=== PATIENT | female | born 1955 | race Caucasian/White ===

== ENCOUNTER → 2016-09-21 | Outpatient (CLI) | payer OTHER ==
[~2016-09-21] MED LIST: CALC500C70 PO; CEPH500C2 PO; CLR10 PO; OXYC-57 PO; PRAV20TA PO; SULI150T PO
--- NOTE | 2016-09-21 09:46 | DIAGNOSTIC IMAGING REPORT ---
TWO VIEW CHEST CLINICAL HISTORY: Cough. Chest tightness. FINDINGS: PA and lateral chest radiographs are obtained. No prior studies are available for comparison at the time of dictation. The cardiomediastinal silhouette is unremarkable. The lungs and pleural spaces are clear. There is no pneumothorax. The skeletal structures are osteopenic. The bony thorax appears intact. IMPRESSION: No active disease in the chest. Electronically signed by: Antoine Tovar M.D. 09/21/2016 9:44 AM Dictated Date/Time: 09/21/2016 9:43 AM
== END | disposition home or self-care (01) ==
LOC: C.RADBC 09:30
PROVIDERS: ATTEND Physician Assistant
DX: R07.89 Other chest pain (principal)

== ENCOUNTER → 2017-01-11 | Outpatient (CLI) | payer OTHER ==
[2017-01-11 12:58] LABS: ALT/SGPT 47 U/L (12-78); BLOOD UREA NITROGEN 21 mg/dl (7-18); BUN/CREATININE RATIO 22.4 (10-20); CALCIUM 9.5 mg/dl (8.5-10.1); CARBON DIOXIDE 28 mmol/L (21-32); CHLORIDE 106 mmol/L (98-107); CHOLESTEROL 152 mg/dl (0-200); CREATININE 0.92 mg/dl (0.60-1.20); GLUCOSE 96 mg/dl (70-99); POTASSIUM 3.9 mmol/L (3.5-5.1); SODIUM 140 mmol/L (136-145)
[2017-01-11 13:02] LABS: ALB/GLOB RATIO 1.4 (0.9-2); ALKALINE PHOSPHATASE 53 U/L (45-117); AST/SGOT 29 U/L (15-37); CHOLESTEROL/HDL RATIO 3.3; HDL CHOLESTEROL 46 mg/dl; LDL CHOLESTEROL CALCULATED 80 mg/dl; TRIGLYCERIDES 128 mg/dl (0-150); VERY LOW DENSITY LIPOPROT CALC 26 mg/dl
[2017-01-11 13:04] LABS: HEMATOCRIT 40.4 % (37-47); MEAN CORPUSCULAR HEMOGLOBIN 31.9 pg (25-34); MEAN CORPUSCULAR HGB CONC 34.7 g/dl (32-36); MEAN PLATELET VOLUME 11.7 fL (7.4-10.4); PLATELET COUNT 169 K/uL (130-400); RED BLOOD COUNT 4.39 M/uL (4.2-5.4); WHITE BLOOD COUNT 3.06 K/uL (4.8-10.8)
== END | disposition home or self-care (01) ==
LOC: C.LABPBG 09:38
PROVIDERS: ATTEND Physician Assistant
DX: Z00.00 Encounter for general adult medical examination without abnormal findings (principal); Z01.818 Encounter for other preprocedural examination; E78.5 Hyperlipidemia, unspecified

== ENCOUNTER → 2017-01-17 | Outpatient (CLI) | payer OTHER ==
[2017-01-17 12:23] LABS: COMPLETE YES; HEMATOCRIT 40.5 % (37-47); IG% 0.3 %; LYMPH % 32.7 %; LYMPH ABS # 0.96 K/uL (1.2-3.4); MEAN CELL VOLUME 91.4 fL (80-100); MEAN CORPUSCULAR HEMOGLOBIN 31.8 pg (25-34); MEAN CORPUSCULAR HGB CONC 34.8 g/dl (32-36); MEAN PLATELET VOLUME 11.5 fL (7.4-10.4); MONO % 5.4 %; NEUT % 61.6 %; PLATELET COUNT 158 K/uL (130-400); RED BLOOD COUNT 4.43 M/uL (4.2-5.4); WHITE BLOOD COUNT 2.94 K/uL (4.8-10.8)
== END | disposition home or self-care (01) ==
LOC: C.LABPBG 07:27
PROVIDERS: ATTEND Physician Assistant
DX: D70.9 Neutropenia, unspecified (principal)

== ENCOUNTER → 2017-02-01 | Day surgery (SDC) | payer OTHER ==
--- NOTE | 2017-01-27 13:00 | HISTORY & PHYSICAL EXAMINATION ---
DATE OF ADMISSION: 02/01/2017 HISTORY OF PRESENT ILLNESS: A 61-year-old female presents today for preop evaluation. Pain is located in the right foot. Severity is graded as 7 on 10-point scale, described as aching, sore and tender. Condition was first noticed over a year ago. She denies any recent exposure, precipitating event or history for this condition. Associated signs and symptoms include pain, swelling and throbbing. She graded it as a change in condition. The patient notes she has had pain in the right foot for over a year. Conservative treatment is no longer helping with the discomfort. Past treatment and tests for this include x-rays, insoles, oral medications, orthotics, rest and strapping. Due to the nature and severity of the discomfort, she is requesting surgical intervention. PAST SURGICAL HISTORY: D&C. PAST MEDICAL HISTORY: Hyperlipidemia. MEDICATIONS: Clinoril, Claritin, calcium, pravastatin. ALLERGIES: Seasonal allergies. FAMILY HISTORY: Unremarkable. SOCIAL HISTORY: The patient denies smoking, alcohol use, illicit drug use, and STDs. REVIEW OF SYSTEMS: Unremarkable except chief complaint. PHYSICAL EXAMINATION: VITAL SIGNS: 5' 2", weight 140 pounds, body mass index 26. CONSTITUTIONAL: The patient appears well-developed and nourished with good attention to body grooming and habitus. HEAD AND FACE: Head is normocephalic and atraumatic without any gross head, face, or neck masses. EYES: Conjunctival and pupillary reaction to light and accommodation normal. EARS, NOSE, MOUTH, AND THROAT: Unremarkable. NECK: Neck is supple. Trachea is midline. CARDIOVASCULAR: Normal S1, S2. RESPIRATORY: Lungs clear to auscultation bilaterally GASTROINTESTINAL: Bladder, kidney, abdominal organs show no masses, tenderness, or rigidity. LOWER EXTREMITIES: DP palpable. PT palpable. DERMATOLOGIC: Inspection of the left hallux and metatarsophalangeal joint of the right hallux shows bony prominence. NEUROLOGICAL: Touch, pin, vibratory, pain, proprioception sensations are normal. MUSCULOSKELETAL: Muscle tone is normal. Muscle strength is 5/5 all groups tested. Inspection and palpation of bones, joints shows first metatarsophalangeal joint, enlarged dorsal medial eminence with decreased range of motion and track bound bilaterally. IMPRESSION: 1. Degenerative joint disease bilaterally, right greater than left. 2. Hallux abductovalgus deformity, right greater than left. 3. Difficulty walking. 4. Pain in lower extremities. PLAN: I discussed mechanical and congenital etiology of the patient's deformity. Conservative treatment consists of extra depth shoes, accommodative padding, steroid injection, nonsteroidals and orthotics. Surgical procedures to be performed: 1. Modified Jiang. 2. Cheilectomy with total implant arthroplasty, right first MTPJ. This will be performed under general anesthesia as an outpatient at the surgery center. Procedure, risks and complications were fully reviewed with the patient. Consent form, foot diagram and illustration reviewed in all their entirety. All the patient's questions were answered. Complications were discussed in detail with the patient including pain, infection, swelling that may or may not be excessive, pins and needles feeling, numbness, metatarsalgia, excessive bleeding, delay or nonhealing of bone, delayed or nonhealing of skin, enlarged scar, failure of the procedure, reoccurrence or worsening of condition which may or may not cause reaction to anesthesia, allergic reaction to suture or other implant material, loss of toe, foot or leg, flail toe, stiff toe, short toe, elevated toe, transfer lesion or callus, peripheral neurovascular complications such as phlebitis, damage to nerves or vascular structures, severe or chronic pain, chronic nerve pain or damage, and general medical complications. The patient will be required to be in a surgery shoe for a minimum of 3-6 weeks and not return to dress shoe for 8-12 weeks depending on postop edema. The patient is aware this is an elective type procedure and I recommend a second opinion. The patient stated they understood. Consent form was signed with a copy of the foot diagram and illustration given to the patient. Verbal and written postop instructions were given. The patient will return to the office for postop check or sooner if medically necessary. Instructed to keep the dressing clean, dry and intact until seen at the office. At the time of the preoperative appointment, prescriptions for Keflex and Percocet were dispensed.
[2017-01-27 14:35] VITALS: BMI 25.0
[~2017-02-01] VITALS: Ht 157.5 cm; Wt 63.6 kg
[~2017-02-01] MED LIST changes: +ATROPINE SULFATE 0.1 MG/ML 5ML SYR IV PRN; +BUPIVACAINE 0.5 % 5 MG/1 ML MPF 30ML VIAL ONE; +CEFAZOLIN 1000MG/55 ML D5W IV SCH; +DEXAMETHASONE SOD INJ 4 MG/ML VIAL ONE; +EpHEDrine SULFATE 50MG/5ML SYR ONE; +FENTANYL CITRATE INJ 50 MCG/1 ML 2 ML VIAL IV PRN; +FENTANYL CITRATE INJ 50 MCG/1 ML 2 ML VIAL ONE; +KETOROLAC TROMETHAMINE 30 MG/ML VIAL IV. PRN; +LABETALOL HCL IV 5 MG/ML 20ML IV PRN; +LACTATED RINGER'S 1000ML 1,000 ML IV SCH; +MIDAZOLAM HCL 1 MG/ML 2ML VIAL ONE; +ONDANSETRON INJ 2 MG/ML 2 ML VIAL IV PRN; +ONDANSETRON INJ 2 MG/ML 2 ML VIAL ONE; +PROMETHAZINE HCL INJ 12.5 MG in SODIUM CHLORIDE 0.9% 50ML 50 ML IV PRN; +PROPOFOL IV EMULSION 10 MG/ML 20 ML VIAL IV ONE; +ROPIVACAINE 0.5% 5 MG/ML 30 ML VIAL ONE; +SODIUM CHLORIDE 0.9% 1000ML 1,000 ML IV SCH
[2017-02-01 05:46] VITALS: BP 171/94; PULSE 79; TEMP 36.6; O2SAT 95; Ht 157.5 cm; Wt 63.6 kg
--- NOTE | 2017-02-01 06:58 | History & Physical Bridge Note ---
H&P Re-Evaluation Bridge Note: I have examined the patient, reviewed the History & Physical and in the interval since the performance of the History & Physical I have noted the following changes of clinical significance: No changes noted
--- NOTE | 2017-02-01 07:00 | Discharge Instructions ---
Discharge Instructions Date of Service Feb 01, 2017. Visit Reason for Visit: Right Foot Hallux Abducto Valgus Deformity Discharge Discharge Diagnosis / Problem: same as above Discharge Goals Goal(s): Decrease discomfort Activity Recommendations Activity Limitations: per Instructions/Follow-up section Medications: * Resume previous medications unless instructed by your surgeon. * Take your medications as prescribed. Call our office ([phone]) at any time, if you experience severe pain that does not subside shortly after taking your pain medication. Activity: * Do not put any standing weight on your operated foot/ankle. Use the crutches or walker as instructed. Special Care: * Keep your bandage clean and dry. Do not remove your bandage unless otherwise instructed. A small amount of blood may appear on the bandage over the surgical site. Call our office ([phone]) if you bandage becomes blood-soaked or wet. * Elevate your operated foot/ankle on pillows, above the level of your heart, as often as possible during the first 2-3 days following surgery. Keep your knee flexed slightly with a pillow under your knee when you elevate your foot/ankle. * Apply a ice bag to your foot/ankle over the operative site for 20-30 minutes out of each hour while you are awake. Do not allow the ice bag to directly contact bare skin. * Avoid bumping or handling any pins visible in your toes. If any pin feels or appears loose, call the office ([phone]). * Take your oral temperature in the morning and at bedtime. Call our office ([phone]) if your temperature rises above 101 degrees Fahrenheit. Call your surgeon's office at ([phone]) for any problems or concerns such as excessive bleeding and/or pain unrelieved by your prescribed pain medications. If you have any questions, please do not hesitate to ask them. Avoid all tobacco products. If you need help to stop smoking, call [place]'s FREE QUITLINE at . This is a free call. Follow-up: Follow-up with Dr. Wolff Anesthesia . Post Anesthesia Instructions: If you have had General Anesthesia or IV Sedation: * Do not drive today. * Resume driving when surgeon permits. * Do not make important decisions or sign legal documents today. * Call surgeon for: 1. Temperature elevations greater than 101 degrees F. 2. Uncontrollable pain. 3. Excessive bleeding. 4. Persistent nausea and vomiting. 5. Medication intolerance (nausea, vomiting or rash). * For nausea and vomiting use only clear liquids such as: tea, soda, bouillon until nausea subsides, then gradually increase diet as tolerated. * If you have any concerns or questions, call your surgeon's office. If physician is unavailable and it is an emergency, call 911 or go to the nearest emergency room. . Diet Recommendations Recommended Home Diet: resume previous diet Pending Studies Studies pending at discharge: no Medical Emergencies . Who to Call and When: Medical Emergencies: If at any time you feel your situation is an emergency, please call 911 immediately. . Non-Emergent Contact Non-Emergency issues call your: Primary Care Provider . . "Provider Documentation" section prepared by Candice Higuera. .
--- NOTE | 2017-02-01 09:26 | OPERATIVE REPORT ---
DATE OF OPERATION: 02/01/2017 PREOPERATIVE DIAGNOSES: Degenerative joint disease, pain, hallux limitus, hallux abductovalgus deformity. POSTOPERATIVE DIAGNOSES: Same. PROCEDURE: Modified Jiang cheilectomy right first MTPJ, total implant arthroplasty right first MTPJ. SURGEON: Dr. Wolff. HEMOSTASIS: Pneumatic ankle tourniquet inflated to a level of 250 mmHg for a total tourniquet time of 71 minutes. ESTIMATED BLOOD LOSS: Minimal. MATERIALS: 2-0, 3-0 Vicryl, 4-0 nylon, 5-0 PDS, Arthrosurface total implant 1.5 x 3.5 poly, 1 mm thickness. FINDINGS: Articular cartilage was down to subchondral bone involving 75% of the first metatarsal with adaptive changes noted over the base of proximal phalanx. COMPLICATIONS: None. HISTOPATHOLOGY: Bone sent. PROCEDURE: The patient was brought to the OR and placed on the OR table in supine position. Upon completion of general anesthesia and a regional field block performed by the anesthesia department the extremity was scrubbed, prepped and draped in the usual aseptic fashion. Attention was directed to the right lower extremity where a well-padded ankle tourniquet was applied to the right lower extremity. The extremity was scrubbed, prepped and draped in the usual aseptic fashion. A drill guide consisting of a K-wire was placed under fluoro with the guide pin and checked under fluoro. was used over the first metatarsal. The joint was decompressed approximately 1 mm with half a turn, tapered post and were used to trial the area. It was decided 1.5 x 3.5 was the best area. At this time, the centering shaft and the surface reamer were used to abrade a large amount of bone over the first metatarsal head. The dorsal reamer was then used to ream the dorsal aspect of the first met head. Sizing trial was placed and felt to be good alignment. At this time, under fluoroscopy, a guidewire was placed in the proximal phalanx. Controlled cheilectomy using phalangeal reamer was placed over the area. This was tapped and proximal phalanx was placed for the proximal phalanx component. The implant trial was performed with 2 sizers which was found to have good motion of approximately 50 degrees dorsiflexion and plantarflexion with no restriction of motion and motion was smooth. The proximal phalanx head was impacted and the poly 1 mm thickness was placed in the base of proximal phalanx and the joint was taken through range of motion with good smooth motion, approximately 50 degrees of motion noted. Intra-articular position was checked under fluoro. Closure began in the deep capsular structures using 2-0 Vicryl. Superficial deep structures were closed using 3-0 Vicryl. Skin margins were closed using 5-0 PDS interspersed with 4-0 nylon. Dry sterile compressive dressing consisting of Steri-Strips, Adaptic soaked in Betadine, 4 x 4's, Festus and an Mathieu was applied. The patient tolerated the procedure and anesthesia well without complications. It should be noted that pneumatic ankle tourniquet was released prior to application of dressing with good hyperemic lopez to digits 1 through 5. I attest to the content of the Intraoperative Record and any orders documented therein. Any exceptions are noted below. LUCIANOD
--- NOTE | 2017-02-01 09:35 | Anesthesiology Progress Note ---
Anesthesia Post Op Note Date & Time Feb 01, 2017 at 09:35 Vital Signs Pain Intensity: 0 Vital Signs Past 12 Hours Date Time Temp Pulse Resp B/P (MAP) Pulse Ox O2 Delivery O2 Flow Rate FiO2 02/01/17 09:16 137/87 02/01/17 09:14 110 16 02/01/17 09:14 110 16 98 02/01/17 09:11 140/92 02/01/17 09:09 111 15 98 02/01/17 09:09 111 15 02/01/17 09:06 146/91 02/01/17 09:04 112 12 98 02/01/17 09:04 111 12 02/01/17 09:03 155/98 02/01/17 09:01 151/104 02/01/17 09:00 151/99 02/01/17 08:59 117 02/01/17 08:59 117 97 02/01/17 08:59 36.3 112 16 151/99 98 Oxymask 10 02/01/17 05:46 36.6 79 18 171/94 (119) 95 Room Air Notes Mental Status: alert / awake / arousable, participated in evaluation Pt Amnestic to Procedure: Yes Nausea / Vomiting: adequately controlled Pain: adequately controlled Airway Patency, RR, SpO2: stable & adequate BP & HR: stable & adequate Hydration State: stable & adequate Anesthetic Complications: no major complications apparent
--- NOTE | 2017-02-01 09:44 | DIAGNOSTIC IMAGING REPORT ---
INTRAOPERATIVE FLUOROSCOPIC IMAGES OF THE RIGHT FOOT CLINICAL HISTORY: Right 1st total implant arthroplasty metatarsophalangeal joint. COMPARISON STUDY: No previous studies for comparison. FLUOROSCOPY TIME: 39 seconds. FINDINGS: 2 fluoroscopic images demonstrate expected findings following right first metatarsophalangeal joint arthroplasty. Hardware is intact. There is no fracture or unexpected radiopaque foreign body. IMPRESSION: Expected findings following right first metatarsophalangeal joint arthroplasty. Electronically signed by: Shyam Lim M.D. 02/01/2017 9:43 AM Dictated Date/Time: 02/01/2017 9:40 AM
[2017-02-01 10:05] VITALS: BP 131/90; PULSE 104; TEMP 36.8; O2SAT 94
[2017-02-01 10:35] VITALS: BP 138/94; PULSE 105; O2SAT 94
--- NOTE | 2017-02-01 10:35 | DIAGNOSTIC IMAGING REPORT ---
RIGHT FOOT 3 VIEWS CLINICAL HISTORY: Postoperative examination. FINDINGS: 3 views of the right foot are obtained. No prior studies are available for comparison at the time of dictation. The skeletal structures are osteopenic. There are postoperative changes from arthroplasty placement at the first metatarsophalangeal joint. The arthroplasty is in near-anatomic alignment. The orthopedic hardware appears intact. No acute fracture is seen. The joint spaces of the foot are otherwise well-maintained. Soft tissue edema and subcutaneous gas in the medial forefoot is an expected postoperative finding. IMPRESSION: Expected postoperative findings status post right first metatarsophalangeal joint arthroplasty procedure. No acute fracture is seen. Dictated: 02/01/2017 10:00 AM Transcribed: 02/01/2017 10:35 AM [facility] Electronically signed by: Antoine Tovar M.D. 02/01/2017 10:46 AM Dictated Date/Time: 02/01/2017 10:00 AM
[2017-02-01 11:05] VITALS: BP 147/91; PULSE 105; TEMP 36.5; O2SAT 95
== END | disposition home or self-care (01) ==
LOC: C.ACU 05:07
PROVIDERS: ATTEND Podiatrist Foot & Ankle Surgery
DX: M20.5X1 Other deformities of toe(s) (acquired), right foot (principal); M20.11 Hallux valgus (acquired), right foot; M19.071 Primary osteoarthritis, right ankle and foot; E78.5 Hyperlipidemia, unspecified; Z79.899 Other long term (current) drug therapy

== ENCOUNTER → 2017-03-04 | Outpatient (CLI) | payer BC, OTHER ==
[~2017-03-04] MED LIST changes: -ATROPINE SULFATE 0.1 MG/ML 5ML SYR IV PRN; -BUPIVACAINE 0.5 % 5 MG/1 ML MPF 30ML VIAL ONE; -CEFAZOLIN 1000MG/55 ML D5W IV SCH; -DEXAMETHASONE SOD INJ 4 MG/ML VIAL ONE; -EpHEDrine SULFATE 50MG/5ML SYR ONE; -FENTANYL CITRATE INJ 50 MCG/1 ML 2 ML VIAL IV PRN; -FENTANYL CITRATE INJ 50 MCG/1 ML 2 ML VIAL ONE; -KETOROLAC TROMETHAMINE 30 MG/ML VIAL IV. PRN; -LABETALOL HCL IV 5 MG/ML 20ML IV PRN; -LACTATED RINGER'S 1000ML 1,000 ML IV SCH; -MIDAZOLAM HCL 1 MG/ML 2ML VIAL ONE; -ONDANSETRON INJ 2 MG/ML 2 ML VIAL IV PRN; -ONDANSETRON INJ 2 MG/ML 2 ML VIAL ONE; -PROMETHAZINE HCL INJ 12.5 MG in SODIUM CHLORIDE 0.9% 50ML 50 ML IV PRN; -PROPOFOL IV EMULSION 10 MG/ML 20 ML VIAL IV ONE; -ROPIVACAINE 0.5% 5 MG/ML 30 ML VIAL ONE; -SODIUM CHLORIDE 0.9% 1000ML 1,000 ML IV SCH
[2017-03-04 12:12] LABS: COMPLETE YES; EOS % 0.3 %; HEMATOCRIT 39.4 % (37-47); IG% 0.5 %; LYMPH % 32.5 %; LYMPH ABS # 1.19 K/uL (1.2-3.4); MEAN CORPUSCULAR HEMOGLOBIN 32.6 pg (25-34); MEAN CORPUSCULAR HGB CONC 35.8 g/dl (32-36); MEAN PLATELET VOLUME 11.6 fL (7.4-10.4); MONO % 8.2 %; NEUT % 58.5 %; PLATELET COUNT 173 K/uL (130-400); RED BLOOD COUNT 4.33 M/uL (4.2-5.4); WHITE BLOOD COUNT 3.66 K/uL (4.8-10.8)
[2017-03-04 12:41] LABS: CHOLESTEROL/HDL RATIO 3.1
== END | disposition home or self-care (01) ==
LOC: C.LABPBG 07:30
PROVIDERS: ATTEND Family Medicine
DX: D70.9 Neutropenia, unspecified (principal); E78.5 Hyperlipidemia, unspecified

== ENCOUNTER → 2017-03-23 | Outpatient (CLI) | payer OTHER ==
[2017-03-23 17:45] LABS: HEMATOCRIT 39.4 % (37-47); MEAN CELL VOLUME 92.7 fL (80-100); MEAN CORPUSCULAR HGB CONC 34.5 g/dl (32-36); MEAN PLATELET VOLUME 11.4 fL (7.4-10.4); PLATELET COUNT 183 K/uL (130-400); RED BLOOD COUNT 4.25 M/uL (4.2-5.4); WHITE BLOOD COUNT 4.34 K/uL (4.8-10.8)
== END | disposition home or self-care (01) ==
LOC: C.LABPBG 11:39
PROVIDERS: ATTEND Family Medicine
DX: D70.9 Neutropenia, unspecified (principal)

== ENCOUNTER → 2017-03-25 | Outpatient (CLI) | payer OTHER | END | disposition home or self-care (01) | LOC: C.PAPS 13:04 | PROVIDERS: ATTEND Family Medicine | DX: Z01.419 Encounter for gynecological examination (general) (routine) without abnormal findings (principal); N95.2 Postmenopausal atrophic vaginitis ==

== ENCOUNTER → 2017-05-09 | Outpatient (CLI) | payer OTHER | END | disposition home or self-care (01) | LOC: C.MAMM 12:22 | PROVIDERS: ATTEND Family Medicine | DX: M81.0 Age-related osteoporosis without current pathological fracture (principal); M85.89 Other specified disorders of bone density and structure, multiple sites ==

== ENCOUNTER → 2017-08-09 | Day surgery (SDC) | payer OTHER ==
[2017-07-07 08:54] VITALS: BMI 25.0
--- NOTE | 2017-08-08 08:59 | HISTORY & PHYSICAL EXAMINATION ---
DATE OF ADMISSION: 08/09/2017 HISTORY OF PRESENT ILLNESS: A 62-year-old female presents for preoperative evaluation, requesting surgery. Condition is located in the left foot. Pain is described as aching, severe swollen and sore. Condition was first noted several years ago graded as a 7 or an 8 on a 10 point scale. Associated signs and symptoms include aching pain, swelling and tenderness. The patient indicates she has been having problems with the left foot for over a year. She gets pain and swelling of her foot here and there, although has progressively become worse. She notices it more specifically since having a right foot surgery for similar problem and now notes that this is resolved which brings her attention more to the left foot pain. Due to good results on the right foot, she is requesting a similar type of procedure be performed on the left foot. Overall, she is very happy with her right foot. Occasionally, she has some stiffness; however, most if not all of her pain now is located in her left foot centered around the left first MTPJ. Due to failure of conservative treatment, she is requesting surgical intervention at this time. PAST SURGICAL HISTORY: D&C foot, 2011. PAST MEDICAL HISTORY: Hyperlipidemia. MEDICATIONS: Calcium, pravastatin, Claritin. ALLERGIES: ACETAMINOPHEN, OXYCODONE, SEASONAL ALLERGIES. FAMILY HISTORY: Unremarkable. SOCIAL HISTORY: The patient denies smoking, alcohol use, illicit drug use, and STDs. REVIEW OF SYSTEMS: Unremarkable except chief complaint. PHYSICAL EXAMINATION: VITAL SIGNS: Height 5 feet 2 inches, weight 145 pounds, body mass index 27, BP 134/82. CONSTITUTIONAL: The patient appears well-developed and nourished with good attention to body grooming and habitus. HEAD AND FACE: Head is normocephalic and atraumatic without any gross head, face, or neck masses. EYES: Conjunctival and pupillary reaction to light and accommodation are normal. EARS, NOSE, MOUTH, AND THROAT: Unremarkable. NECK: Neck is supple. Trachea is midline. CARDIOVASCULAR: Normal S1, S2 without murmur, gallops, rubs, or clicks noted. Cardiovascular exam is normal. RESPIRATORY: Chest is symmetric. No scars are visible. No port or pacemaker noted. LUNGS: Clear to auscultation bilaterally and equal. GASTROINTESTINAL: Abdominal organs, bladder, and kidney show no abnormalities, masses, tenderness, or rigidity. LYMPHATIC: No popliteal, inguinal, supraclavicular or lymphadenopathy noted. LOWER EXTREMITIES: DP palpable. PT palpable. DERMATOLOGIC: Inspection of the left metatarsophalangeal shows bony prominence right cicatrix dorsally over the right first MTPJ well healed with no hypertrophy. NEUROLOGICAL: Touch, pin, vibratory sensations normal. Deep tendon reflexes normal. MUSCULOSKELETAL: Muscle tone is normal. Muscle strength 5/5 all groups tested. First metatarsophalangeal joint shows evidence of enlarged dorsal medial eminence on the left. No pain on the right, pain on palpation on the left on attempted range of motion of left with limited range of motion. Alignment and range of motion right first MTPJ is good. IMPRESSION: 1. Degenerative joint disease left first metatarsophalangeal joint. 2. Hallux limitus deformity, left. 3. Hallus abductovalgus deformity, left. 4. Status post cheilectomy with total implant arthroplasty, right first metatarsophalangeal joint, 02/01/2017. 5. Pain, left lower extremity. 6. Difficulty walking. PLAN: I discussed mechanical and congenital etiology of patient's deformity. Conservative treatment consisting of: 1. Extra depth shoes. 2. Accommodative padding. 3. Palliative debridement. 4. Steroid injections. 5. Nonsteroidals. 6. Orthotic to slow down the progression of deformity. I discussed mechanical and congenital etiology of patient's deformity. Conservative treatment consisting of the above outlined options. Due to the nature and severity of the discomfort with good improvement on the right, she is requesting similar surgery on the left. Surgical procedures to be performed: 1. Modified Jiang, left first MTPJ. 2. Cheilectomy, left first MTPJ. 3. Total implant arthroplasty, left first MTPJ. This will be performed under general anesthesia as an outpatient at the surgery center. The procedure, risks and complications were fully reviewed with the patient. Consent form for foot diagram and illustration reviewed in all their entirety. All the patient's questions were answered. Complications were discussed in detail with the patient including pain, infection, swelling that may or may not be excessive, pins and needles feeling, numbness, metatarsalgia, failure of the procedure, recurrence or worsening of conditions which may or may not require further surgery, adverse reaction to anesthesia, allergic reaction to suture or other implant material, loss of toe, foot, or leg, flail toe, stiff toe, short toe, elevated toe, transfer lesion or callus, peripheral neurovascular complications such as phlebitis, damage to nerves or vascular structures or chronic pain, chronic nerve pain or damage, and general medical complications. The patient will be required to be in a surgery shoe for a minimum of 3-6 weeks and not return to dress shoe for 8-12 weeks depending on postop edema. The patient is aware this is an elective type procedure and I recommend a second opinion. The patient said she understood, consent form was signed with a copy of foot diagram issued to the patient. Verbal and written postop instructions were given. The patient will be required to be in a surgery shoe for a minimum of 3-6 weeks and not return to dress shoe for 8-12 weeks depending on postop edema. The patient will return to the office for a postop check or sooner if medically necessary. Instructed to keep the dressing clean, dry, and intact until seen in the office. At the time of the preoperative appointment, prescriptions for Keflex and Percocet were dispensed.
[~2017-08-09] VITALS: Ht 157.5 cm; Wt 63.6 kg
[~2017-08-09] MED LIST changes: +ATROPINE SULFATE 0.1 MG/ML 5ML SYR IV PRN; +BUPIVACAINE 0.5 % 5 MG/1 ML PF 10ML VIAL ONE; +CEFAZOLIN 1000MG IV PUSH 7.5 ML IV SCH; -CEPH500C2 PO; +CLONIDINE HCL 100 MCG/ML SYRINGE ONE; +DEXAMETHASONE SOD INJ 4 MG/ML VIAL ONE; +EpHEDrine SULFATE INJ 50 MG/ML AMP IV PRN; +FENTANYL CITRATE INJ 50 MCG/1 ML 2 ML VIAL ONE; +FLONASE NAE; +LACTATED RINGER'S 1000ML 1,000 ML IV SCH; +LIDOCAINE HCL 2% 2 ML VIAL (20MG/ML) ONE; +MEPIVACAINE HCL 1.5% 30 ML VIAL ONE; +MIDAZOLAM HCL 1 MG/ML 2ML VIAL ONE; +ONDANSETRON INJ 2 MG/ML 2 ML VIAL ONE; -OXYC-57 PO; +PROPOFOL IV EMULSION 10 MG/ML 20 ML VIAL IV ONE; +ROPIVACAINE 0.5% 5 MG/ML 30 ML VIAL ONE; +SODIUM CHLORIDE 0.9% 1000ML 1,000 ML IV SCH
[2017-08-09 10:30] VITALS: BP 145/114; PULSE 105; TEMP 36.5; O2SAT 96; Ht 157.5 cm; Wt 63.6 kg
--- NOTE | 2017-08-09 11:47 | Discharge Instructions ---
Discharge Instructions Date of Service Aug 09, 2017. Admission Reason for Admission: Bunion Discharge Discharge Diagnosis / Problem: same as diagnosis Discharge Goals Goal(s): Decrease discomfort Activity Recommendations Activity Limitations: as noted below Medications: * Resume previous medications unless instructed by your surgeon. * Take your medications as prescribed. Call our office ([phone]) at any time, if you experience severe pain that does not subside shortly after taking your pain medication. Activity: * Do not put any standing weight on your operated foot/ankle. Use the crutches or walker as instructed. Special Care: * Keep your bandage clean and dry. Do not remove your bandage unless otherwise instructed. A small amount of blood may appear on the bandage over the surgical site. Call our office ([phone]) if you bandage becomes blood-soaked or wet. * Elevate your operated foot/ankle on pillows, above the level of your heart, as often as possible during the first 2-3 days following surgery. Keep your knee flexed slightly with a pillow under your knee when you elevate your foot/ankle. * Apply a ice bag to your foot/ankle over the operative site for 20-30 minutes out of each hour while you are awake. Do not allow the ice bag to directly contact bare skin. * Avoid bumping or handling any pins visible in your toes. If any pin feels or appears loose, call the office ([phone]). * Take your oral temperature in the morning and at bedtime. Call our office ([phone]) if your temperature rises above 101 degrees Fahrenheit. Call your surgeon's office at ([phone]) for any problems or concerns such as excessive bleeding and/or pain unrelieved by your prescribed pain medications. If you have any questions, please do not hesitate to ask them. Avoid all tobacco products. If you need help to stop smoking, call [place]'s FREE QUITLINE at . This is a free call. Follow-up: Follow-up with Dr. Wolff . Current Hospital Diet Patient's current hospital diet: Discharge Diet Recommended Diet: Regular Diet Pending Studies Studies pending at discharge: no Medical Emergencies . Who to Call and When: Medical Emergencies: If at any time you feel your situation is an emergency, please call 911 immediately. . Non-Emergent Contact Non-Emergency issues call your: Primary Care Provider . "Provider Documentation" section prepared by Candice Higuera. .
--- NOTE | 2017-08-09 13:53 | [facility] Post Operative Brief Note ---
Immediate Operative Summary Operative Date Aug 09, 2017. Pre-Operative Diagnosis 1. Degenerative joint disease left first metatarsophalangeal joint. 2. Hallux limitus deformity, left. 3. Hallus abductovalgus deformity, left Post-Operative Diagnosis Same Procedure(s) Performed Modified Jiang Left 1st Metatarsal Phalangeal Joint, Cheilectomy Metatarsal Phalangeal Joint and Total Arthroplasty Metatarsal Phalangeal Joint Surgeon Dr Wolff General Manager [employer] Surgeon(s) None Estimated Blood Loss 1ml Findings Consistent with Post-Op Diagnosis Specimens None Anesthesia Type General Regional
--- NOTE | 2017-08-09 14:26 | DIAGNOSTIC IMAGING REPORT ---
L FOOT 2 VIEWS CLINICAL HISTORY: LT FOOT RECONSTRUCTION Fluoroscopy time: 43 seconds. FINDINGS: 4 fluoroscopic spot images of the left foot. Initial images demonstrates a pin crossing the first MTP joint. This is followed by total arthroplasty of the first MTP joint. There is improved anatomic alignment. The hardware appears intact. IMPRESSION: Fluoroscopy provided for total arthroplasty of the first MTP joint. The hardware appears intact. Electronically signed by: Jasmeet Ellis M.D. 08/09/2017 2:24 PM Dictated Date/Time: 08/09/2017 2:18 PM
--- NOTE | 2017-08-09 14:39 | Anesthesiology Progress Note ---
Anesthesia Post Op Note Date & Time Aug 09, 2017 at 14:38 Vital Signs Pain Intensity: 0 Vital Signs Past 12 Hours Date Time Temp Pulse Resp B/P (MAP) Pulse Ox O2 Delivery O2 Flow Rate FiO2 08/09/17 14:25 102 15 151/98 96 Room Air 08/09/17 14:15 92 14 154/108 100 Oxymask 10 08/09/17 14:05 100 14 160/100 100 Oxymask 10 08/09/17 13:58 36.0 106 14 152/100 100 Oxymask 10 08/09/17 10:30 36.5 105 20 145/114 (124) 96 Room Air Notes Mental Status: alert / awake / arousable, participated in evaluation Pt Amnestic to Procedure: Yes Nausea / Vomiting: adequately controlled Pain: adequately controlled Airway Patency, RR, SpO2: stable & adequate BP & HR: stable & adequate Hydration State: stable & adequate Anesthetic Complications: no major complications apparent
--- NOTE | 2017-08-09 14:51 | OPERATIVE REPORT ---
DATE OF OPERATION: 08/09/2017 ADDENDUM After the proximal phalanx implant was placed, the wound was copiously lavaged with normal saline. The trial implant was examined. The articular head component and the official poly 1 mm was placed over the area. The joint was taken through a range of motion of approximately 55 degrees. The final placement was checked under fluoroscan. The wound was copiously lavaged with normal saline. Closure began of deep-structured tissues using 2-0 Vicryl. Superficial deep structures were closed using 3-0 Vicryl in a box stitch technique. Skin margins were closed using 5-0 PDS in subcuticular fashion, interspersed with 4-0 nylon in a simple interrupted fashion. Dry sterile compressive dressing consisting of Adaptic, 4 x 4's, Festus and an Mathieu was applied. Pneumatic ankle tourniquet was released prior to application of dressing with good hyperemic lopez digits 1 through 5. The patient tolerated the procedure and anesthesia well without complications. He was transferred to the recovery room with vital stable and neurovascular status intact. I attest to the content of the Intraoperative Record and any orders documented therein. Any exception s are noted below.
--- NOTE | 2017-08-09 14:51 | OPERATIVE REPORT ---
DATE OF OPERATION: 08/09/2017 POSTOPERATIVE NOTE SURGEON: Dr. Wolff. PREOPERATIVE DIAGNOSIS: 1. Disease with a bone cyst formation, first metatarsal. 2. Hallux limitus, left first metatarsophalangeal joint, hallux abductovalgus deformity. POSTOPERATIVE DIAGNOSES: Same. PROCEDURES: 1. Modified Jiang. 2. Cheilectomy, left first MTPJ. 3. Total implant arthroplasty, left first MTPJ. HEMOSTASIS: Pneumatic ankle tourniquet inflated to a level of 250 mmHg for a total tourniquet time of 71 minutes. ESTIMATED BLOOD LOSS: Minimal. MATERIALS: 2-0 and 3-0 Vicryl, 4-0 nylon, 5-0 PDS, Arthrosurface total implant measuring 1.5 x 3.5, polys 1 mm thickness. FINDINGS: There is a central defect down to subchondral bone first met with adaptive changes over the base of the proximal phalanx. HISTOPATHOLOGY: Bone sent. COMPLICATIONS: None. CONDITION: The patient tolerated the procedure and anesthesia well without complications, transferred to recovery room with vital signs stable and neurovascular status intact. ANESTHESIA: General with regional popliteal block performed by anesthesia. DESCRIPTION OF PROCEDURE: The patient was brought to the OR and placed on OR table in supine position. Upon completion of regional field block in preoperative holding area, the left lower extremity was scrubbed, prepped and draped in the usual aseptic fashion. Just prior to this, a well-padded ankle tourniquet was applied to the left lower extremity. The extremity was scrubbed, prepped and draped. Attention was directed to the left first metatarsophalangeal joint with an incision just medial to tendon extensor hallucis longus with care to preserve all neurovascular structures as dissection was carried down to the level of capsular structures. The adductor tendon was freed from the lateral aspect of the joint, freeing the fibular sesamoid. Long linear capsulotomy was performed of left first MTPJ. Upon examination of the joint, central aspect first metatarsal was down to subchondral bone with central defect noted in the cartilaginous area. A guidewire was placed just above the essentially within the first met. A drill was placed over the guide pin after examination under fluoroscopy. A pilot steam yacht hole was drilled, this was tapped. The taper post was advanced until the tour bus driver/guide was flushed with the cartilage surface. It should be noted that the joint was decompressed approximately three-fourths of a turn for increased motion. The taper point was cleaned and the trial was placed after removal of the dorsal osteophyte and bone around the joint was cleaned up with a sagittal saw and rongeur. A surface reamer was used on the offsets decompressing the area. All accessory bone upon the dorsal reamer guide and sizing trial was removed. At this time, attention was directed to the proximal phalanx where a guide pin was placed centrally within the proximal phalanx. The toe phalangeal joint over the proximal phalanx was addressed after placement of the post. After the guide pin was placed, the area was reamed with a 0.1.5 guide pin to the depth flushed with the medial, lateral and plantar articular surfaces. The tap was introduced over the 1.5 guide pin until the tap was flushed with the level of the original metatarsophalangeal joint surface. The area was copiously lavaged. I attest to the content of the Intraoperative Record and any orders documented therein. Any exceptions are noted below. MTDD
--- NOTE | 2017-08-09 14:54 | DIAGNOSTIC IMAGING REPORT ---
LEFT FOOT 3 VIEWS CLINICAL HISTORY: Postoperative examination. FINDINGS: 3 views of the left foot are obtained. No prior studies are available for comparison at the time of dictation. The skeletal structures are osteopenic. There has been arthroplasty placement at the first metatarsophalangeal joint. The joint is in near-anatomic alignment. No acute fracture is seen. The joint spaces of the foot are otherwise preserved. A tiny plantar calcaneal enthesophyte is noted. Subcutaneous gas and soft tissue edema in the foot our expected postoperative changes. IMPRESSION: 1. Expected postoperative findings status post arthroplasty at the first metatarsophalangeal joint. 2. No acute fracture is seen. Electronically signed by: Antoine Tovar M.D. 08/09/2017 2:53 PM Dictated Date/Time: 08/09/2017 2:51 PM
[2017-08-09 14:57] VITALS: BP 164/89; PULSE 93; TEMP 36.4; O2SAT 94
[2017-08-09 15:27] VITALS: BP 162/96; PULSE 90; TEMP 36.6; O2SAT 95
== END | disposition home or self-care (01) ==
LOC: C.ACU 10:07
PROVIDERS: ATTEND Podiatrist Foot & Ankle Surgery
DX: M20.12 Hallux valgus (acquired), left foot (principal); M20.5X2 Other deformities of toe(s) (acquired), left foot; M19.072 Primary osteoarthritis, left ankle and foot; E78.5 Hyperlipidemia, unspecified; Z88.5 Allergy status to narcotic agent; Z88.6 Allergy status to analgesic agent